=== PATIENT | female | born 1955 | race Caucasian/White ===

== ENCOUNTER 2017-11-13 17:07 | Outpatient (REF) | payer BC, SELFPAY ==
[2017-11-13 21:04] LABS: Creatine Kinase 104 U/L (26-192); TSH 2.48 uIU/mL (0.358-3.74)
== END 2017-11-13 17:27 ==
LOC: NCHCN 17:07
PROVIDERS: PCP Physician Assistant Medical; Visit Provider Physician Assistant Medical
DX: E03.9 Hypothyroidism, unspecified (principal); R73.9 Hyperglycemia, unspecified; M79.10 Myalgia, unspecified site
CPT/HCPCS: 82550; 84443

== ENCOUNTER 2017-12-26 15:19 | Outpatient (CLI) | payer BC, SELFPAY ==
--- NOTE | 2017-12-26 15:14 | DI.RAD_ITS ---
SYMPTOM/DIAGNOSIS: INJURY RIGHT FOOT: 12/26/17 Three views were obtained. There is fracture of the proximal phalanx of the 3rd toe in the distal midshaft with mild displacement. No additional fracture identified.
== END 2017-12-26 15:39 ==
PROVIDERS: PCP Physician Assistant Medical; Visit Provider Physician Assistant Surgical
DX: S99.921A Unspecified injury of right foot, initial encounter (principal); S92.511A Displaced fracture of proximal phalanx of right lesser toe(s), initial encounter for closed fracture
CPT/HCPCS: 73630

== ENCOUNTER 2018-03-13 05:15 | Outpatient (CLI) | payer BC, SELFPAY ==
--- NOTE | 2018-03-13 13:33 | DI.CTLCSR_ITS ---
SYMPTOMS/DIAGNOSIS: [facility], Z00.00, FORMER SMOKER, Z87.[address], LOW DOSE LUNG CANCER SCREENING PROTOCOL: CT examination of the chest was performed utilizing low dose lung cancer screening protocol. Images obtained through the upper abdomen show unremarkable appearance of visualized portions of liver, spleen, pancreas, adrenals and kidneys. Prior cholecystectomy noted. No mediastinal or hilar adenopathy seen. No aortic dilatation seen. No pleural effusion. No evidence of pneumothorax. Tracheobronchial tree appears intact. The lungs are predominantly clear. Predominantly linear peripheral and pleural- based radiodensities are noted in the lung apices and, to a lesser degree, the lung bases. No intrapulmonary focal nodule seen. No consolidation seen. CONCLUSION: Negative lung cancer screening low dose CT. Lung-RAD Category: 1- Negative Lung- RAD Management of Findings: Continue annual LDCT screening in 12 months
== END 2018-03-13 05:35 ==
PROVIDERS: PCP Nurse Practitioner Family; Visit Provider Nurse Practitioner Family
DX: Z12.2 Encounter for screening for malignant neoplasm of respiratory organs (principal); Z00.00 Encounter for general adult medical examination without abnormal findings; Z87.891 Personal history of nicotine dependence
CPT/HCPCS: G0297

== ENCOUNTER 2018-07-30 00:25 | Outpatient (CLI) | payer BC, SELFPAY ==
--- NOTE | 2018-07-30 10:42 | DI.MAMMO_ITS ---
SYMPTOMS/DIAGNOSIS: SCREENING, [facility], Z00.00 MAMMOGRAMS: Mammograms were interpreted according to the usual protocol including computer analysis with CAD system, tomosynthesis and C view imaging. The breast tissue is heterogeneously radiodense, which lowers the sensitivity of the study. There is no dominant mass. There are no suspicious calcifications and there has been no significant interval change when compared with prior images. SUMMARY: No evidence of malignancy, category 1. Yearly screening mammography is recommended. Breast density category C. SA ASSESSMENT OF FINDINGS: Negative. Category 1. Patient will receive a letter notifying them of these results. Bi-RADS category C. The breasts are heterogeneously dense, which may obscure small masses.
== END 2018-07-30 00:45 ==
PROVIDERS: PCP Nurse Practitioner Family; Visit Provider Nurse Practitioner Family
DX: Z00.00 Encounter for general adult medical examination without abnormal findings (principal); Z12.31 Encounter for screening mammogram for malignant neoplasm of breast
CPT/HCPCS: 77063; 77067

== ENCOUNTER 2018-09-22 04:03 | Outpatient (CLI) | payer BC, SELFPAY ==
[2018-09-22 10:03] LABS: ALT 25 U/L (12-78); AST 12 U/L (15-37); Anion Gap 7.1 mmol/L (3-11); BUN 17 mg/dL (7-18); CO2 28.9 mmol/L (21.0-32.0); Calcium 8.7 mg/dL (8.5-10.1); Chloride 107 mmol/L (98-107); Creatine Kinase 71 U/L (26-192); Estimated GFR 45.67 (mL/min/1.73m2); Glucose 108 mg/dL (70-100); Potassium 4.6 mmol/L (3.5-5.1); Sodium 143 mmol/L (136-145)
[2018-09-22 10:15] LABS: Calculated LDL 103 mg/dL; Cholesterol 173 mg/dL (50-200); HDL Cholesterol 62 mg/dL (40-60); Triglyceride 40 mg/dL (30-150)
== END 2018-09-22 04:23 ==
PROVIDERS: PCP Nurse Practitioner Family; Visit Provider Nurse Practitioner Family
DX: E78.00 Pure hypercholesterolemia, unspecified (principal); R73.9 Hyperglycemia, unspecified; N18.3 Chronic kidney disease, stage 3 (moderate)
CPT/HCPCS: 36415; 80048; 80061; 82550; 83721; 84450; 84460

== ENCOUNTER 2019-03-21 15:56 | Outpatient (CLI) | payer BC, SELFPAY ==
[2019-03-21 16:09] LABS: Bilirubin Negative (Negative); Blood Small (Negative); Clarity Cloudy (Clear); Glucose Negative (Negative); Ketones Negative (Negative); Leukocyte Esterase Large (Negative); Nitrite Positive (Negative); Urobilinogen 0.2 EU/dL (Up TO 0.2); pH 6.5 (5-8)
[2019-03-21 16:22] LABS: Bacteria Many HPF (Negative); C & S Indicated? Yes; Casts Negative LPF (Negative); Crystals Negative HPF (Negative); Epithelial Cells Negative HPF (Negative); Mucus Negative (Negative); RBC >50 HPF (0-2); WBC >50 HPF (0-5)
== END 2019-03-21 16:16 ==
PROVIDERS: PCP Nurse Practitioner Family; Visit Provider Physician Assistant Medical
DX: R35.0 Frequency of micturition (principal)
CPT/HCPCS: 87077; 81003; 81015; 87086; 87186

== ENCOUNTER 2019-03-24 18:28 | Outpatient (REF) | payer BC, SELFPAY ==
[2019-03-24 19:25] LABS: Anion Gap 7.6 mmol/L (3-11); BUN 12 mg/dL (7-18); CO2 29.4 mmol/L (21.0-32.0); CREATININE 1.15 mg/dL (0.55-1.02); Calcium 9.2 mg/dL (8.5-10.1); Chloride 105 mmol/L (98-107); Estimated GFR 47.81 (mL/min/1.73m2); Glucose 88 mg/dL (74-106); Potassium 4.1 mmol/L (3.5-5.1); Sodium 142 mmol/L (136-145); TSH (W/Ref FT4) 2.75 uIU/mL (0.36-3.74)
== END 2019-03-24 18:48 ==
LOC: NCHCN 18:28
PROVIDERS: PCP Nurse Practitioner Family; Visit Provider Nurse Practitioner Family
DX: E03.9 Hypothyroidism, unspecified (principal); E78.49 Other hyperlipidemia; F32.9 Major depressive disorder, single episode, unspecified; R73.9 Hyperglycemia, unspecified
CPT/HCPCS: 80048; 83036; 84443

== ENCOUNTER 2019-10-30 17:49 | Emergency (ER) | payer BC, SELFPAY ==
[2019-10-30 17:54] VITALS: BP 142/79; PULSE 76; RESP 20; TEMP 37; O2SAT 99
[2019-10-30 18:07] LABS: Bilirubin Negative (Negative); Blood Moderate (Negative); Clarity Sl Cloudy (Clear); Glucose Negative (Negative); Ketones Negative (Negative); Leukocyte Esterase Moderate (Negative); Nitrite Negative (Negative); Urobilinogen 0.2 EU/dL (Up TO 0.2); pH 5.5 (5-8)
[2019-10-30 18:15] LABS: Bacteria Moderate HPF (Negative); Casts Negative LPF (Negative); Crystals Negative HPF (Negative); Epithelial Cells Negative HPF (Negative); Mucus Negative (Negative); Other Cells Few Renal (Negative); WBC >50 HPF (0-5)
[2019-10-30 18:16] LABS: C & S Indicated? Yes
--- NOTE | 2019-10-30 18:34 | ED.GENADUL_ITS ---
Discharge Plan Disposition Patient Disposition: HOME Condition: Stable Discharge Details Clinical Impression: UTI (urinary tract infection) Primary Care Provider: Paola Yi ED Provider: Juan Dowd Home Meds and New Rx's Prescriptions: Continued multivitamin [Daily Multi-Vitamin] 1 EACH tablet 1 ea PO DAILY RF: 0 hydroxyzine HCl 50 MG tablet 50 mg PO HS RF: 0 bupropion HCl 100 MG tablet extended release 12 hr 100 mg PO BID RF: 0 levothyroxine [Levoxyl] 25 MCG tablet 25 mcg PO DAILY RF: 0 loratadine-pseudoephedrine [Loratadine-D] 1 EACH tablet extended release 24 hr 1 tab-cap PO DAILY RF: 0 zolpidem 10 MG tablet 5 mg PO HS RF: 0 advantage digestive 1 cap DAILY RF: 0 aspirin 81 MG tablet,delayed release (DR/EC) 81 mg PO DAILY Qty: 30 RF: 0 atorvastatin 40 mg tablet 40 mg PO DAILY Qty: 30 RF: 11 omeprazole 10 mg capsule,delayed release(DR/EC) 10 mg PO BID RF: 0 omega-3 fatty acids Capsule 1,250 mg PO DAILY RF: 0 Tumeric 1 PO DAILY RF: 0 Discharge Instructions Instructions: Urinary Tract Infection in Women (ED) Additional Instructions: Urine is consistent with urinary tract infection. Take the antibiotics that were prescribed to you by your primary care provider. Please watch for new or worsening symptoms and return to the ER for any concerns. Please follow the instructions given to you by your primary care provider earlier today. Discharge Data Discharge Date/Time-TO BE ENTERED AT DEPARTURE: 10/30/19 18:43 Medical Decision Making 64-year-old female who has had UTIs in the past presents reporting that she believes she has a UTI again. Symptoms began today. It appears as though there was some confusion and she actually only needed to drop off a urine sample at the lab and not be evaluated in the ER. She denies fever, back pain, vomiting, abdominal pain. She appears well, nontoxic. Urinalysis reveals moderate blood, moderate leuk esterase, 5-10 red cells, greater than 50 white cells. Patient already has a prescription for cephalexin. Patient will be discharged from the ER having had a urinalysis obtained she will follow the instructions given to her by her primary care provider earlier today. Medical Records Medical records reviewed: Yes I reviewed the patient's medical records. Lab Data Lab results reviewed: Yes I reviewed the patient's lab results. Labs: 10/30/19 18:00 Urine - Reflex from Ua Urine Culture - Pending Laboratory Tests Range/Units 10/30/19 18:00 Urine Color (Yellow) Yellow Urine Clarity (Clear) Sl cloudy Urine pH (5-8) 5.5 Ur Specific [place] (1.005-1.025) 1.020 Urine Protein (Negative) mg/dL Negative Urine Ketones (Negative) mg/dL Negative Urine Blood (Negative) Moderate H Urine Nitrite (Negative) Negative Urine Bilirubin (Negative) Negative Urine Urobilinogen (Up TO 0.2) EU/dL 0.2 Ur Leukocyte Esterase (Negative) Moderate H Urine RBC (0-2) HPF 5-10 H Urine WBC (0-5) HPF >50 H Ur Epithelial Cells (Negative) HPF Negative Urine Crystals (Negative) HPF Negative Urine Bacteria (Negative) HPF Moderate Urine Casts (Negative) LPF Negative Urine Mucus (Negative) Negative Urine Other (Negative) Few renal Ur Culture Indicated? Yes Urine Glucose (Negative) mg/dL Negative HPI General Mode of arrival: ambulatory . Date/Time Provider Initiated Documentation: 10/30/19 18:05 . Limitations to Documentation: no limitations . Information obtained by: patient . HPI Narrative: 64-year-old female with past medical history of GERD, thyroid disease, hyperlipidemia, presents to the ER for evaluation. Patient reports that she began having UTI-like symptoms this morning, frequency, dysuria. Denies fever, back pain, nausea, vomiting, hematuria. Patient already contacted her primary care provider, she has a prescription for antibiotics to fill, and was told to go to the lab to drop off a urine sample. It appears as though there was some confusion and the patient did not actually mean to or need to sign into the ER. Given her chief complaint, urinalysis has already been sent per protocol. Related Data Home Medications Medication Instructions Recorded Confirmed Ad[employer]age Dig[employer]ive 1 cap DAILY 09/01/14 10/30/19 bupropion HCl 100 mg PO BID tab-cap 09/01/14 10/30/19 hydroxyzine HCl 50 mg PO HS 09/01/14 10/30/19 levothyroxine [Levoxyl] 25 mcg PO DAILY tab-cap 09/01/14 10/30/19 loratadine-pseudoephedrine 1 tab-cap PO DAILY tab-cap 09/01/14 10/30/19 [Loratadine-D] multivitamin [Daily Multi-Vitamin] 1 ea PO DAILY 09/01/14 10/30/19 zolpidem 5 mg PO HS 09/01/14 10/30/19 aspirin 81 mg PO DAILY #30 tab-cap 03/09/17 10/30/19 atorvastatin 40 mg tablet 40 mg PO DAILY #30 tab-cap 02/26/18 10/30/19 Tumeric 1 PO DAILY 10/30/19 omega-3 fatty acids 1,250 mg PO DAILY 10/30/19 10/30/19 omeprazole 10 mg PO BID 10/30/19 10/30/19 Previous Rx's Medication Instructions Recorded aspirin 81 mg PO DAILY #30 tab-cap 03/09/17 atorvastatin 40 mg tablet 40 mg PO DAILY #30 tab-cap 02/26/18 Allergies Allergy/AdvReac Type Severity Reaction Status Date / Time latex Allergy rash Unverified 10/30/19 18:02 hydrocodone AdvReac N/V/Diarrhe Unverified 10/30/19 18:02 a oxycodone AdvReac N/V/diarrhe Unverified 10/30/19 18:02 a raw tomatoes Allergy hives Uncoded 10/30/19 18:02 General Stated Complaint: Urinary JACKELINE: 4 Review of Systems Constitutional Constitutional: Denies fever(s) Gastrointestinal Gastrointestinal: Denies abdominal pain, Denies nausea and Denies vomiting Genitourinary Genitourinary: Reports dysuria and Reports urinary hesitancy Musculoskeletal Musculoskeletal: Denies back pain [facility] Social History Smoking/Tobacco Use Status: Former Tobacco Use Alcohol Intake: never Drug use: Never Substance use type: does not use Do you feel safe in your relationship?: Yes Exam Const General: cooperative, healthy appearing, comfortable and no acute distress Orientation: alert and awake [facility] Head: normal to inspection, normocephalic and atraumatic Mouth: moist mucous membranes Eyes Conjunctivae: conjunctivae normal Sclera: sclerae normal Neck Neck: normal visual inspection, full ROM, trachea midline and supple Resp Effort & Inspection: normal respiratory effort and able to speak in complete sentences Cardio Rate: regular rate Rhythm: regular rhythm GI Palpation: soft and nontender Back/Spine/Pelvis Back: No back tenderness Skin General skin exam: no rashes or lesions noted Neuro General: patient alert, patient awake, moves all extremities and no focal motor deficits Sensory Exam: no sensory deficits noted Psych Appearance: grossly normal Mental Status: mental status grossly normal Course Vital Signs Vital signs: Vital Signs Temperature 37 C 10/30/19 17:54 Pulse 76 10/30/19 17:54 Respiratory Rate 20 10/30/19 17:54 Blood Pressure 142/79 H 10/30/19 17:54 Pulse Oximetry 99 10/30/19 17:54 Temperature 37 C 10/30/19 17:54 Temperature Source Skin 10/30/19 17:54 Pulse 76 10/30/19 17:54 Respiratory Rate 10/30/19 17:54 Respiratory Effort Non-Labored 10/30/19 18:07 Blood Pressure 142/79 H 10/30/19 17:54 Blood Pressure Position Sitting 10/30/19 17:54 Pulse Oximetry 99 10/30/19 17:54 Oxygen Delivery Method Room Air 10/30/19 17:54 Oxygen Flow Rate 0 10/30/19 17:54 Pain Level 5 10/30/19 17:54 Lab/Test Results Lab/Test Results: 10/30/19 18:00 Urine - Reflex from Ua Urine Culture - Pending Laboratory Tests Range/Units 10/30/19 18:00 Urine Color (Yellow) Yellow Urine Clarity (Clear) Sl cloudy Urine pH (5-8) 5.5 Ur Specific [place] (1.005-1.025) 1.020 Urine Protein (Negative) mg/dL Negative Urine Ketones (Negative) mg/dL Negative Urine Blood (Negative) Moderate H Urine Nitrite (Negative) Negative Urine Bilirubin (Negative) Negative Urine Urobilinogen (Up TO 0.2) EU/dL 0.2 Ur Leukocyte Esterase (Negative) Moderate H Urine RBC (0-2) HPF 5-10 H Urine WBC (0-5) HPF >50 H Ur Epithelial Cells (Negative) HPF Negative Urine Crystals (Negative) HPF Negative Urine Bacteria (Negative) HPF Moderate Urine Casts (Negative) LPF Negative Urine Mucus (Negative) Negative Urine Other (Negative) Few renal Ur Culture Indicated? Yes Urine Glucose (Negative) mg/dL Negative
== END 2019-10-30 18:43 | disposition home or self-care (01) ==
PROVIDERS: Emergency Provider Physician Assistant; PCP Nurse Practitioner Family
DX: N39.0 Urinary tract infection, site not specified (principal); Z87.440 Personal history of urinary (tract) infections
CPT/HCPCS: 99282; 81003; 81015; 87086

== ENCOUNTER 2019-11-04 18:53 | Outpatient (REF) | payer BC, SELFPAY ==
[2019-11-04 20:06] LABS: AST 14 U/L (15-37); HDL Cholesterol 67 mg/dL (40-60); LDL CHOLESTEROL 95 mg/dL (<100); TSH 2.73 uIU/mL (0.36-3.74)
[2019-11-04 20:21] LABS: ALT 25 U/L (14-59); Creatine Kinase 88 U/L (26-192)
== END 2019-11-04 19:13 ==
LOC: NCHCN 18:53
PROVIDERS: PCP Nurse Practitioner Family; Visit Provider Nurse Practitioner Family
DX: E78.49 Other hyperlipidemia (principal); E03.9 Hypothyroidism, unspecified
CPT/HCPCS: 82550; 83721; 83718; 84443; 84450; 84460

== ENCOUNTER 2020-03-22 16:57 | Outpatient (REF) | payer BC, SELFPAY ==
[2020-03-22 20:21] LABS: Anion Gap 9.8 mmol/L (3-11); BUN 17 mg/dL (7-18); CO2 28.2 mmol/L (21.0-32.0); Calcium 9.2 mg/dL (8.5-10.1); Chloride 104 mmol/L (98-107); Glucose 84 mg/dL (74-106); Potassium 4.3 mmol/L (3.5-5.1); Sodium 142 mmol/L (136-145)
[2020-03-22 20:43] LABS: Hemoglobin A1C 5.8 % (<5.7)
== END 2020-03-22 16:58 | disposition home or self-care (01) ==
LOC: NCHCN 16:57
PROVIDERS: PCP Nurse Practitioner Family; Visit Provider Nurse Practitioner Family
DX: N18.30 Chronic kidney disease, stage 3 unspecified (principal); R73.03 Prediabetes
CPT/HCPCS: 80048; 83036

== ENCOUNTER 2020-03-26 13:44 | Outpatient (REF) | payer BC, SELFPAY ==
[2020-03-26 13:48] LABS: C Diff PCR Negative (Negative)
[2020-03-27 12:30] LABS: Campylobacter PCR Negative (Negative); Salmonella PCR Negative (Negative); Shiga Toxin PCR Negative (Negative); Shigella/Enteroinvasive Ecoli Negative (Negative)
== END 2020-03-26 13:45 | disposition home or self-care (01) ==
LOC: NCHCN 13:44
PROVIDERS: PCP Nurse Practitioner Family; Visit Provider Nurse Practitioner Family
DX: R73.03 Prediabetes (principal); E78.49 Other hyperlipidemia; N18.30 Chronic kidney disease, stage 3 unspecified; R19.4 Change in bowel habit
CPT/HCPCS: 87329; 87493; 87505; 87177

== ENCOUNTER 2020-04-01 02:35 | Outpatient (CLI) | payer BC, SELFPAY ==
[2020-04-02 13:42] LABS: COVID-19 RT-PCR UVMMC Result Negative (Negative)
== END 2020-04-01 02:36 | disposition home or self-care (01) ==
LOC: LBO 02:36
PROVIDERS: PCP Nurse Practitioner Family; Visit Provider Surgery
DX: Z20.822 Contact with and (suspected) exposure to COVID-19 (principal); Z01.818 Encounter for other preprocedural examination
CPT/HCPCS: U0003

== ENCOUNTER 2020-04-05 10:09 | Day surgery (SDC) | payer BC, SELFPAY ==
--- NOTE | 2020-04-05 06:53 | W.COLOREPORT ---
Date of service: 04/05/20 Time of Service: 10:59 Colonoscopy Report Date of procedure: 04/05/20 Pre-op diagnosis general: Colon Cancer Screening, hx of polyps Post-op diagnosis procedure note: same Procedure: Colonoscopy Surgeon: Ban Patel Anesthesia proc note operative: other (General/ASA 2/Fede Carrasco, LARRY) Estimated blood loss (mL): 0 Pathology: none sent Complications: None Disposition: same day Indications: The patient is here for Colonoscopy pre-op. Her last screening was in 2014 and was remarkable for tubular adenomatous polyp. She has no family history of colon cancer. She has not had any bowel habit changes. -Discussed colonoscopy bowel prep as well as the procedure. Discussed possible complications of the procedure to include bleeding, pain, perforation, missed small lesion/polyp, sore throat, aspiration and adverse reaction to the medications. Questions were answered to patient?s satisfaction. No guarantees were implied or given. Prep: Miralax/Dulcolax Procedure Start Time: :59 Procedure End Time: 11:25 Findings: Sigmoid diverticulosis Procedure Description: After informed consent was obtained the patient was taken to the procedure room and placed in a left decubitous position. Monitors were applied and a time out was done. The patients name, date of , procedure, allergies to medications and metal in their body was reviewed. The patient was then sedated. Once sedated and comfortable a rectal exam was done. External exam was normal. Internal exam revealed a normal sphincter tone and no palpable masses. The scope was then introduced and retro-flexed. No internal hemorrhoids, polyps or masses were identified on retro-flexion. The scope was then advanced to the cecum with some difficulty. The ileocecal vlave and appendiceal orifice were identified. The prep was good. The scope was then slowly retracted back into the rectum. (Unfortunately the pictures I took were lost so I am unable to calculate exact retraction time but it was > 6 minutes). There were no polyps. There was mild diverticulosis of the descending and sigmoid colon noted. The scope was removed and the patient was woken up and taken back to Same day surgery in stable condition. The patient tolerated the procedure well and there were no immediate complications. Follow up: The patient should follow up in 5 years unless they develop changes in bowel habits or other new gastrointestinal complaints.
--- NOTE | 2020-04-05 06:53 | W.PM.DSUDISC ---
Discharge Plan Disposition Patient Disposition: HOME Condition: Good Discharge Details Reason For Visit: Colon cancer screening Attending Provider: Ban Patel Primary Care Provider: Paola iY Home Meds and New Rx's Prescriptions: Continued multivitamin [Daily Multi-Vitamin] 1 EACH tablet 1 ea PO DAILY RF: 0 hydroxyzine HCl 50 MG tablet 50 mg PO HS RF: 0 bupropion HCl 100 MG tablet extended release 12 hr 100 mg PO BID RF: 0 levothyroxine [Levoxyl] 25 MCG tablet 25 mcg PO DAILY RF: 0 loratadine-pseudoephedrine [Loratadine-D] 1 EACH tablet extended release 24 hr 1 tab-cap PO DAILY RF: 0 advantage digestive 1 cap PO DAILY RF: 0 aspirin 81 MG tablet,delayed release (DR/EC) 81 mg PO DAILY Qty: 30 RF: 0 atorvastatin 40 mg tablet 40 mg PO DAILY Qty: 30 RF: 11 cholecalciferol (vitamin D3) 50 mcg (2,000 unit) capsule 50 mcg PO DAILY RF: 0 azelastine 137 mcg (0.1 %) aerosol,spray 2 spray intranasal BID RF: 0 zolpidem [Ambien] 10 mg tablet 10 mg PO QHS PRNRF: 0 omeprazole 10 mg capsule,delayed release(DR/EC) 10 mg PO BID RF: 0 omega-3 fatty acids Capsule 1,250 mg PO DAILY RF: 0 Tumeric 2,000 mg PO DAILY RF: 0 Discontinued polyethylene glycol 3350 17 gram/dose powder 238 g PO ONCE Qty: 238 RF: 0 bisacodyl [Dulcolax (bisacodyl)] 5 mg tablet,delayed release (DR/EC) 5 mg PO ONCE Qty: 4 RF: 0 Discharge Instructions Instructions: Diverticulosis (DC) Additional Instructions: Findings: diverticulosis Follow up: 5 years because you had a pre-cancerous polyp before Please call if you develop: fevers >101.5 Nausea or Vomiting Abdominal pain that is not transient DAY SURGERY UNIT POST ENDOSCOPY INSTRUCTIONS 1. Because there will be medication in your system for the next 24 hours, you may feel a little sleepy. Your coordination will be affected. Therefore: a. Do not drive or operate dangerous equipment for 24 hours. b. Do not drink alcohol beverages for 24 hours (not even beer). c. Plan to go home and rest for the day. 2. Generally there are no restrictions on your activity after a day or so has gone by, but you may feel a bit fatigued for a few days. 3 After you arrive home you may have a light meal and return to a normal diet as you can tolerate it without feeling sick to your stomach. 4. After surgery, you may feel pain or discomfort. This should be only transient, but if it persists please contact your doctor. 5. If there are any questions regarding the findings of your procedure, please feel free to contact your doctor. 6. If you are unable to contact your doctor with a problem, contact the hospital at [phone]. 7. Continue all your regular medications unless directed otherwise. I understand the above instructions and have no questions. Signature of Patient or Responsible Adult Escort Date/Time Name of Responsible Adult Escort Signature of Nurse Date/Time Activity:: Activity as Tolerated Diet:: High Fiber Discharge Orders Discharge Orders: Discharge Order (Routine); Ordered 04/05/20 Ordered By: Ban Patel
[2020-04-05 10:27] VITALS: BP 126/69; PULSE 69; RESP 16; TEMP 36.5; O2SAT 98
[2020-04-05] MEDS: Lactated Ringers 1,000 ML 80 ML IV (10:50)
[2020-04-05 11:50] VITALS: BP 137/77; PULSE 69; RESP 16; TEMP 36.6; O2SAT 99
== END 2020-04-05 12:15 | disposition home or self-care (01) ==
LOC: SUR 10:10
PROVIDERS: PCP Nurse Practitioner Family; Visit Provider Surgery
PROC: 0DJD8ZZ Inspection of Lower Intestinal Tract, Via Natural or Artificial Opening Endoscopic (ICD-10-PCS; CPT 45378; principal; 2020-04-05 11:00)
DX: Z12.11 Encounter for screening for malignant neoplasm of colon (principal); Z86.010 Personal history of colon polyps; N18.30 Chronic kidney disease, stage 3 unspecified; E03.9 Hypothyroidism, unspecified; K57.30 Diverticulosis of large intestine without perforation or abscess without bleeding; K21.9 Gastro-esophageal reflux disease without esophagitis
CPT/HCPCS: 45378; J2001

== ENCOUNTER 2020-11-15 17:17 | Outpatient (REF) | payer BC, SELFPAY ==
[2020-11-15 20:30] LABS: Bacteria Rare HPF (Negative); C & S Indicated? C&S Done As Ordered; Casts Negative LPF (Negative); Crystals Negative HPF (Negative); Epithelial Cells Few HPF (Negative); Mucus Negative (Negative); RBC 0-2 HPF (0-2)
== END 2020-11-15 17:18 | disposition home or self-care (01) ==
LOC: NCHCN 17:17
PROVIDERS: PCP Nurse Practitioner Family; Visit Provider Nurse Practitioner Family
DX: E03.9 Hypothyroidism, unspecified (principal); Z00.00 Encounter for general adult medical examination without abnormal findings; R39.15 Urgency of urination
CPT/HCPCS: 81015; 84439; 84443; 87086

== ENCOUNTER 2020-11-19 15:09 | Emergency (ER) | payer BC, SELFPAY ==
--- NOTE | 2020-11-19 15:12 | ED.GENADUL_ITS ---
Discharge Plan Disposition Patient Disposition: HOME Condition: Stable Discharge Details Clinical Impression: Hand laceration Primary Care Provider: Paola Yi ED Provider: Bernarda Torres Home Meds and New Rx's Prescriptions: New cephalexin 500 mg capsule 500 mg PO TID 7 Days Qty: 21 RF: 0 Continued multivitamin [Daily Multi-Vitamin] 1 EACH tablet 1 ea PO DAILY RF: 0 hydroxyzine HCl 50 MG tablet 50 mg PO HS RF: 0 bupropion HCl 100 MG tablet extended release 12 hr 100 mg PO BID RF: 0 levothyroxine [Levoxyl] 25 MCG tablet 25 mcg PO DAILY RF: 0 loratadine-pseudoephedrine [Loratadine-D] 1 EACH tablet extended release 24 hr 1 tab-cap PO DAILY RF: 0 aspirin 81 MG tablet,delayed release (DR/EC) 81 mg PO DAILY Qty: 30 RF: 0 atorvastatin 40 mg tablet 40 mg PO DAILY Qty: 30 RF: 11 cholecalciferol (vitamin D3) 50 mcg (2,000 unit) capsule 50 mcg PO DAILY RF: 0 azelastine 137 mcg (0.1 %) aerosol,spray 2 spray intranasal BID RF: 0 zolpidem [Ambien] 10 mg tablet 10 mg PO QHS PRNRF: 0 omeprazole 10 mg capsule,delayed release(DR/EC) 10 mg PO BID RF: 0 omega-3 fatty acids Capsule 1,250 mg PO DAILY RF: 0 Tumeric 2,000 mg PO DAILY RF: 0 Discharge Instructions Instructions: Laceration (ED) Additional Instructions: Keep wound clean and dry. Cover wound with bandage if risk of contamination. Otherwise you can keep the wound open to air if resting at home to allow edges to dry and heal. A prescription for antibiotics was sent electronically to your pharmacy. If you develop any local redness, swelling or pain not relieved with topical antibiotics, start the oral antibiotics immediately. Return to the emergency department in 7 days for suture removal. Discharge Data Discharge Date/Time-TO BE ENTERED AT DEPARTURE: 11/19/20 16:41 Discharge Physician: Bernarda Torres Medical Decision Making 65-year-old female presents with left hand/wrist laceration sustained while cutting potatoes at home with a knife prior to arrival. 3 cm linear laceration located on palmar/volar surface of left proximal hand/wri st. Bleeding controlled. No foreign bodies or bony deformity noted. Neurovascularly intact. Tetanus up-to-date. 5 nylon 5-0 sutures placed. Antibiotic ointment and dressing placed. Patient was also given a wrist splint to wear at times of use of left hand and wrist. Prevent over flexion or extension. Advised to return to the ED in 7 days for suture removal. Instructed on importance of proper wound care. Prescription for antibiotics sent electronically to her pharmacy. Usual and customary return precautions given prior to discharge. Medical Records Medical records reviewed: Yes I reviewed the patient's medical records. HPI General Mode of arrival: ambulatory . Date/Time Provider Initiated Documentation: 11/19/20 15:11 . Limitations to Documentation: no limitations . Information obtained by: patient . HPI Narrative: Patient is a 65-year-old female who presents with a left hand/wrist laceration sustained while cutting potatoes at home with a knife. Patient states she is unsure of her tetanus status. She is right-handed. Related Data Home Medications Medication Instructions Recorded Confirmed bupropion HCl 100 mg PO BID tab-cap 09/01/14 11/19/20 hydroxyzine HCl 50 mg PO HS 09/01/14 11/19/20 levothyroxine [Levoxyl] 25 mcg PO DAILY tab-cap 09/01/14 11/19/20 loratadine-pseudoephedrine 1 tab-cap PO DAILY tab-cap 09/01/14 11/19/20 [Loratadine-D] multivitamin [Daily Multi-Vitamin] 1 ea PO DAILY 09/01/14 11/19/20 aspirin 81 mg PO DAILY #30 tab-cap 03/09/17 11/19/20 atorvastatin 40 mg tablet 40 mg PO DAILY #30 tab-cap 02/26/18 11/19/20 Tumeric 2,000 mg PO DAILY 10/30/19 11/19/20 omega-3 fatty acids 1,250 mg PO DAILY 10/30/19 11/19/20 omeprazole 10 mg PO BID 10/30/19 11/19/20 azelastine 137 mcg (0.1 %) nasal 2 spray INTRANASAL BID 01/28/20 11/19/20 spray aerosol cholecalciferol (vitamin D3) 50 50 mcg PO DAILY 01/28/20 11/19/20 mcg (2,000 unit) capsule zolpidem 10 mg tablet 10 mg PO QHS PRN 01/28/20 11/19/20 cephalexin 500 mg PO TID 7 Days #21 cap 11/19/20 Previous Rx's Medication Instructions Recorded aspirin 81 mg PO DAILY #30 tab-cap 03/09/17 atorvastatin 40 mg tablet 40 mg PO DAILY #30 tab-cap 02/26/18 cephalexin 500 mg PO TID 7 Days #21 cap 11/19/20 Allergies Allergy/AdvReac Type Severity Reaction Status Date / Time latex Allergy rash Unverified 11/19/20 15:14 hydrocodone AdvReac N/V/Diarrhe Unverified 11/19/20 15:14 a oxycodone AdvReac N/V/diarrhe Unverified 11/19/20 15:14 a raw tomatoes Allergy hives Uncoded 11/19/20 15:14 General JACKELINE: 4 Review of Systems All systems reviewed & are unremarkable except as noted in HPI and below Constitutional Constitutional: Reports as per HPI, Denies chills and Denies fever(s) Eyes Eyes: Denies blurry vision ENT Ears, Nose, Mouth, and Throat: Denies dizziness, Denies sore throat and Denies throat swelling Cardiovascular Cardiovascular: Denies chest pain and Denies dyspnea Respiratory Respiratory: Denies cough and Denies dyspnea Gastrointestinal Gastrointestinal: Denies abdominal pain, Denies diarrhea and Denies vomiting Genitourinary Genitourinary: Denies hematuria and Denies dysuria Musculoskeletal Musculoskeletal: Denies back pain and Denies numbness Integumentary/Breasts Skin/Breast: Denies lesions and Denies rash Neurologic Neurologic: Denies dizziness, Denies localized weakness and Denies numbness Allergic/Immunologic Allergic/Immunologic: Denies throat swelling [facility] Medical History (Updated 11/19/20 @ 16:23 by Bernarda Torres DO) Basal cell carcinoma Depression Diverticulosis GERD (gastroesophageal reflux disease) Hyperlipidemia Hypothyroidism Insomnia Stage III chronic kidney disease Surgical History (Updated 04/07/20 @ 14:29 by Crystal Wilson) History of colonoscopy (~2014) History of colonoscopy (~03/2020) History of hysterectomy Social History Smoking/Tobacco Use Status: Former Tobacco Use Quit Date: 02/12/17 Smoking risk assessment performed?: Yes Alcohol Intake: current Alcohol Intake frequency: holidays/special occasions only Drug use: Never Substance use type: does not use Do you feel safe at home: Yes Do you feel safe in your relationship?: Yes Exam Const General: cooperative, healthy appearing and no acute distress HENMT Head: normal to inspection Mouth: oral mucosae normal Eyes General: appearance normal, both eyes and all related structures Neck Neck: normal visual inspection Resp Effort & Inspection: normal respiratory effort and able to speak in complete sentences Cardio Rate: regular rate Skin General skin exam: no rashes or lesions noted Neuro General: patient alert, patient awake and patient oriented x3 Motor: muscle tone normal throughout Extrem General: full ROM Hand/finger images: 1. 3 cm linear laceration located on palmar/volar surface of right proximal hand and wrist. Bleeding controlled. No foreign bodies noted. Other: Motor/sensory grossly intact to left hand and wrist. Psych Appearance: grossly normal Affect: normal affect Procedures Laceration Laceration 1: Site: hand Side (If applicable): left Size (cm): 3 Description: linear Depth: simple, single layer Local Anesthetic: Lidocaine 1% and with Epi Amount of anesthesia used (mL): 8 Pre-repair: wound explored, irrigated extensively and deep structures intact Skin layer closed with: nylon Size (cm): 5-0 Number of sutures: 5 Technique: simple, interrupted
[2020-11-19 15:13] VITALS: BP 138/68; PULSE 73; RESP 18; TEMP 36.2; O2SAT 98
--- NOTE | 2020-11-19 16:40 | NUR.NOTE ---
bacitracin, telfa, conform wrap to wrist.Nursing Note:
== END 2020-11-19 16:41 | disposition home or self-care (01) ==
PROVIDERS: Emergency Provider Physician Assistant; PCP Nurse Practitioner Family
DX: S61.412A Laceration without foreign body of left hand, initial encounter (principal); W26.0XXA Contact with knife, initial encounter
CPT/HCPCS: 12002; 29125

== ENCOUNTER 2020-12-28 08:31 | Outpatient (CLI) | payer BC, SELFPAY ==
--- NOTE | 2020-12-28 | DI.MAMMO_ITS ---
Exam(s) MAMMO SCREENING EXAM: MAMMO SCREENING CLINICAL HISTORY: SCREENING, [facility],Z00.00 TECHNIQUE: Mammograms were interpreted according to the usual protocol including computer analysis w [employer] CAD system, tomosynthesis and C-view imaging. COMPARISON: FINDINGS: The breasts are heterogeneously dense. No dominant mass or clumped microcalcification is identified in either breast. Examination is compared with previous examinations including July 2018 and there i s a question of a new focal area of nodularity projected centrally in the left breast on MLO view onl y. This is not well visualized. Additional mammographic views are requested to evaluate this findin g to include an MLO spot compression view of the left breast. No other significant change from prior studies. IMPRESSION: Additional mammographic views of the left breast requested as described above. Breast ultrasound may be indicated as well depending on the results of the additional mammographic views. BI-RADS Category 0 - Assessment Incomplete: Need additional imaging evaluation Breast Density - Category C - Heterogeneously dense
== END 2020-12-28 08:51 ==
PROVIDERS: PCP Nurse Practitioner Family; Visit Provider Nurse Practitioner Family
DX: Z00.00 Encounter for general adult medical examination without abnormal findings (principal); Z12.31 Encounter for screening mammogram for malignant neoplasm of breast; R92.8 Other abnormal and inconclusive findings on diagnostic imaging of breast
CPT/HCPCS: 77063; 77067

== ENCOUNTER 2021-01-11 00:55 | Outpatient (CLI) | payer BC, SELFPAY ==
--- NOTE | 2021-01-11 | DI.US_ITS ---
Exam(s) MG MAMMO SCREEN CALL BACK UNI US BREAST LT LIMITED EXAM: MG MAMMO SCREEN CALL BACK UNI and U/S breast LT limited CLINICAL HISTORY: F/U MAMMO,? NEW AREA OF NODULARITY LT BREAST. TECHNIQUE: Craniocaudal and mediolateral oblique Full Field Digital Mammography views of the left br east with Computer Aided Diagnosis followed by Tomosynthesis and left breast ultrasound. COMPARISON: Priors available for comparison. FINDINGS: Mammography/Tomosynthesis: Masses/Architectural Distortion: None seen. The area of concern is no longer visualized on the additi onal views of the left breast. Microcalcifictions: No suspicious pleomorphic-type are seen. Skin Thickening/Nipple Retraction: None. Left breast US: The upper inner and upper outer quadrants of the left breast were evaluated sonograph ically. Echotexture: Normal appearance of the glandular tissue. Shadowing: No suspicious foci. Cyst: There is a 0.5 x 0.3 x 0.5 cm cyst at the 12 o'clock position of the left breast 2 cm from the nipple. Solid lesions: None seen. Ductal dilation: None. IMPRESSION: 1. No evidence of malignancy is noted. 2. Unless there is more urgent need, follow-up screening mammography is recommended, as per [place] [employer] guidelines. 3. The findings were discussed with the patient on the date of the examination. BI-RADS Category 2 - Benign Findings Breast Density - Category C - Heterogeneously dense Breast density Category C or D implies that the patient has dense breast tissue. Dense breast tissue can make it harder to find cancer on a mammogram. Dense breast tissue is also associated with an incr eased risk of breast cancer. This information about the result of the mammogram report was provided to the patient to raise their awareness. Use this report when you speak with the patient about their risks for breast cancer, which includes their family history. At that time, you may recommend additional screening tests (Ultrasoun d or MRI) as these tests may add significant information. A negative radiographic report should not delay biopsy if a dominant or clinically suspicious mass is present. Up to ten percent of cancers are not identified on mammography. A negative report may reinforce clinical impression. Adenosis and dense breasts may obscure an underlying neoplasm. False positive reports average 6 to 10%. Patient will receive a letter notifying them of these results.
== END 2021-01-11 01:15 ==
PROVIDERS: PCP Nurse Practitioner Family; Visit Provider Nurse Practitioner Family
DX: R92.8 Other abnormal and inconclusive findings on diagnostic imaging of breast (principal); N60.02 Solitary cyst of left breast
CPT/HCPCS: 76642; 77063; 77067

== ENCOUNTER 2021-03-14 01:53 | Outpatient (CLI) | payer BC, SELFPAY ==
[2021-03-14 18:46] LABS: ALT 31 U/L (14-59); AST 23 U/L (15-37); Calculated LDL 103 mg/dL (<100); Cholesterol 190 mg/dL (<200); HDL Cholesterol 77 mg/dL (40-60); TSH 1.46 uIU/mL (0.36-3.74); Triglyceride 50 mg/dL (<150)
[2021-03-14 19:12] LABS: Creatine Kinase 109 U/L (26-192); FREE T4 1.06 ng/dL (0.76-1.46)
== END 2021-03-14 01:54 | disposition home or self-care (01) ==
LOC: LBO 01:53
PROVIDERS: PCP Nurse Practitioner Family; Visit Provider Nurse Practitioner Family
DX: E78.49 Other hyperlipidemia (principal); E03.9 Hypothyroidism, unspecified
CPT/HCPCS: 36415; 80061; 82550; 84439; 84443; 84450; 84460

== ENCOUNTER 2021-03-23 16:28 | Outpatient (REF) | payer BC, SELFPAY ==
[2021-03-23 20:13] LABS: ALT 32 U/L (14-59); AST 20 U/L (15-37); Albumin 3.9 g/dL (3.4-5.0); Alkaline Phosphatase 79 U/L (46-116); BUN 18 mg/dL (7-18); Bilirubin, Total 0.3 mg/dL (0.2-1.0); Calcium 8.8 mg/dL (8.5-10.1); Chloride 105 mmol/L (98-107); Estimated GFR 55.82 (mL/min/1.73m2); Glucose 101 mg/dL (74-106); Sodium 140 mmol/L (136-145)
== END 2021-03-23 16:29 | disposition home or self-care (01) ==
LOC: NCHCN 16:28
PROVIDERS: PCP Nurse Practitioner Family; Visit Provider Nurse Practitioner Family
DX: R10.11 Right upper quadrant pain (principal)
CPT/HCPCS: 80053

== ENCOUNTER 2021-03-28 15:08 | Outpatient (REF) | payer BC, SELFPAY ==
[2021-03-28 19:54] LABS: Abs Immature Grans 0.01 10^3/uL (0.0-0.06); Absolute Basophil Count 0.04 10^3/uL (0.0-0.2); Absolute Eosinophil Count 0.12 10^3/uL (0.0-0.7); Absolute Lymphocyte Count 2.26 10^3/uL (1.2-3.4); Absolute Neutrophil Count 2.49 10^3/uL (1.2-6.7); Basophils % 0.7; Eosinophils % 2.2; HCT 38.1 % (36.0-46.0); HGB 12.2 g/dL (11.2-15.7); Immature Grans % 0.2; Lymphocytes % 41.7; MCV 90.7 fL (80-95); MPV 10.6 fL (8.0-11.0); Monocytes % 9.2; Nucleated RBC 0 %; Platelet Count 276 10^3/uL (130-400); RDW 13.4 % (11.7-14.6); RDW-SD 44.5 fL; WBC 5.42 10^3/uL (4.4-10.8)
[2021-03-28 20:04] LABS: Amylase 86 U/L (25-115); Lipase 161 U/L (73-393)
== END 2021-03-28 15:09 | disposition home or self-care (01) ==
LOC: NCHCN 15:08
PROVIDERS: PCP Nurse Practitioner Family; Visit Provider Nurse Practitioner Family
DX: R10.11 Right upper quadrant pain (principal); R06.09 Other forms of dyspnea
CPT/HCPCS: 83690; 82150; 85025

== ENCOUNTER 2021-03-29 19:48 | Outpatient (CLI) | payer BC, SELFPAY ==
--- NOTE | 2021-03-29 | DI.CT_ITS ---
Exam(s) CT ABDOMEN W EXAM: CT ABDOMEN W CLINICAL HISTORY: RUQ ABD PAIN, R10.11 TECHNIQUE: Contrast infused CT scan of the abdomen was performed. The pelvis was not scanned. Contrast = 100 cc Omnipaque-350 COMPARISON: None. There are no prior abdominal imaging studies in our PACS. FINDINGS: Visualized lung bases exhibit mild benign-appearing increased markings in the inferior lingular segme nt of the left lung and posterior basal segment of the right lower lobe. There are no pleural effusi ons. There is no ascites in the upper abdomen. Liver size is normal. There are no discrete focal hepatic lesions nor dilatation of intrahepatic yahaira ts. The gallbladder is surgically absent. There is no abnormal collection or mass in the gallbladder bed . The CBD is not dilated. Pancreas appears unremarkable. No evidence of pancreatic mass, parenchymal calcifications, nor dilat ation of the pancreatic duct. Spleen size is normal. There are no splenic lesions. The splenic and portal veins are patent. Supe rior mesenteric vein is patent. Adrenal glands appear unremarkable. No masses. Kidneys appear unremarkable. No cysts nor solid lesions. No renal calculi nor hydronephrosis. No p erinephric fluid. Abdominal aorta is not enlarged. There is no atzaghesrhmvskh-vypg-qqpwwo adenopathy. Anterior abdominal wall exhibits no evidence of anterior abdominal hernia above the umbilicus level. Visualized small bowel loops exhibit normal diameters. No evidence of small-bowel obstruction. Area of the appendix is not included in the field of view of this study but the partially included termin al ileum appears unremarkable. IMPRESSION: 1. The gallbladder surgically absent. The biliary tree is not dilated. No abnormal collection in th e gallbladder fossa. 2. No significant focal hepatic lesions. 3. No other focal findings in the upper abdomen. The pelvis was not scanned.
[2021-03-29] MEDS: Breeza Beverage 473 ML BTL 946 ML PO (11:08)
[2021-03-29] MEDS: Omnipaque 350 MG/ML 50 ML BTL 25 ML IJ (11:09)
[2021-03-29] MEDS: Omnipaque 350 MG/ML 100 ML BTL IJ (11:41)
== END 2021-03-29 20:08 ==
LOC: DI 19:50
PROVIDERS: PCP Nurse Practitioner Family; Visit Provider Nurse Practitioner Family
DX: R10.11 Right upper quadrant pain (principal); Z90.49 Acquired absence of other specified parts of digestive tract
CPT/HCPCS: 74160; J3490; Q9967

== ENCOUNTER 2021-04-12 15:21 | Outpatient (RCR) | payer BC, SELFPAY ==
--- NOTE | 2021-04-12 15:15 | HOLTER_ITS ---
APPROVED REPORT Conclusion This was a 48-hour Holter monitor ordered for palpitations Predominant rhythm was sinus. Average heart rate was 74. Minimum was 59, maximum 108 There were no ventricular dysrhythmias There were rare atrial premature beats. There was one 4 beat atrial run There was no atrial fibrillation, no high-grade AV block, no pauses greater than 3 seconds There were no apparent patient symptoms
== END 2021-05-12 23:59 | disposition home or self-care (01) ==
LOC: RT 15:21
PROVIDERS: PCP Nurse Practitioner Family; Visit Provider Nurse Practitioner Family
DX: R00.2 Palpitations (principal); I49.1 Atrial premature depolarization
CPT/HCPCS: 93225; 93226

== ENCOUNTER 2021-04-18 02:54 | Outpatient (CLI) | payer BC, SELFPAY ==
--- NOTE | 2021-04-18 15:00 | ETT_ITS ---
APPROVED REPORT Exam: Exercise Treadmill Patient Location: Out-Patient Room/Bed: Stress Nurse: Susie Juarez RN Ordering Provider:ARDEN SIMMONS, Contact Number: [phone] BMI: 26.78 Baseline Rhythm: Sinus Rhythm Indications: EXERTIONAL SOB Medical History Medical History: HLD, Hypothyroidism, GERD Cardiac Medications: Atorvastatin, Aspirin Allergies: Hydrocodone, Oxycodone Cardiac Risk Factors: FHX of CAD, Hyperlipidemia, Smoking (former) Previous Cardiac Procedures: None Pretest Chest Pain Characteristics: Dyspnea Exercise History: Sedentary Physical Disabilities: None Lung Sounds: Clear to auscultation Heart Sounds: Regular Stress Test Details Test: Exercise stress testing was performed using a Richy protocol. Rest Stress HR Resting HR Supine: 66 bpm Max Heart Rate (APMHR): 156 bpm Resting HR Standin bpm Target HR (85% APMHR): 132 bpm Max HR Achieved: 136 bpm % of APMHR: 87 Recovery HR: 78 bpm HR response to stress: Normal HR response to stress BP Resting BP Supine: 130/72 mmHg Resting BP Standin/72 mmHg Max BP: 182/74 mmHg Recovery BP: 120/64 mmHg BP response to stress: Normal blood pressure response to stress. ECG Resting ECG: Sinus Rhythm Ectopy: None Stress ECG: Sinus Tachycardia ST Change: No significant ST segment changes noted Arrhythmia: None Recovery ECG: Sinus Rhythm Recovery ST Change: No significant ST segment changes noted Recovery Arrhythmia: None Clinical Reason for Termination: Dizziness Stress Symptoms: Dyspnea, Dizziness Exercise duration: 6 min44 sec Highest Stage Reached: Stage 3: 3.4 mph at 14% grade. Exercise capacity: 8.19 METs Clark Treadmill Score: 8 Rate Pressure Product: [id number] Stress ECG Conclusion 1. The patient exercised for 6 minutes and 40 seconds (8 METS). Exercise was stopped due to dyspnea and dizziness. 2. Heart rate and blood pressure augmented appropriately. 3. There were no ECG changes suggestive of ischemia. 4. Consider imaging stress test if clinical suspicion remains high. Clark Treadmill Score is 8 which is Low risk. Stress Test Summary STAGE Time (mins) Speed (mph) Grade (%) HR BP SYMPTOMS METS Supine 66 130/72 Standing 75 128/72 1 3 1.7 10 107 134/76 4.6 2 6 2.5 12 126 162/80 moderate SOB. SpO2 98% 7 1 min recovery 115 182/74 3 min recovery 85 142/70 SOB resolved 6 min recovery 78 120/64
== END 2021-04-18 03:14 ==
LOC: DI 02:54
PROVIDERS: PCP Nurse Practitioner Family; Visit Provider Nurse Practitioner Family
DX: R06.02 Shortness of breath (principal)
CPT/HCPCS: 93017

== ENCOUNTER 2021-06-17 16:53 | Outpatient (REF) | payer BC, SELFPAY ==
--- NOTE | 2021-06-17 15:10 | SKI_PTH ---
PATIENT: Felicitas Cameron LOC: [facility] U#:[id number] AGE/SX: 66/F ROOM: RE06/17/[address]: MOR Denny : 1955 BED: DIS: 06/17/2021 SPEC #: [id number] RECD: 06/20/21 12:38 STATUS: ANTON REQ #: [id number] AMANDA: 06/17/21 15:[address]: Sam Dickerson DEPT: Surgical Specimen RECD BY: Beatriz Lee ENTERED: 06/20/21 12:38 SP TYPE: SKI OTHR DR: Paola Yi Tissues: 1 - SKIN BIOPSY(SHAVE/PUNCH) Procedures: SKIN LEVEL 4 Comments: [id number]
== END 2021-06-17 16:54 | disposition home or self-care (01) ==
LOC: LBN 16:53
PROVIDERS: PCP Nurse Practitioner Family; Visit Provider Physician Assistant
DX: L82.1 Other seborrheic keratosis (principal)
CPT/HCPCS: 88305

== ENCOUNTER → 2022-01-13 00:21 | Outpatient (CLI) | payer OTHER, SELFPAY ==
--- NOTE | 2022-01-13 15:58 | DI.MAMMO_ITS ---
Exam(s) MAMMO SCREENING EXAM: MAMMO SCREENING CLINICAL HISTORY: SCREENING FOR BREAST CANCER Z12.31 TECHNIQUE: Mammograms were interpreted according to the usual protocol including computer analysis w [employer] CAD system, tomosynthesis and C-view imaging. COMPARISON: 2012 through 2020 FINDINGS: The breasts are composed of heterogeneously dense fibroglandular densities, Breast Density category C . No suspicious masses or suspicious microcalcifications are seen. No skin thickening or abnormal axillary lymph nodes are seen. There has been no significant change from prior exams. IMPRESSION: BI-RADS Category 1, Negative mammogram. Yearly screening mammography is recommended. Breast Density Category C, heterogeneously Dense. The mammogram demonstrates the patient's breast tissue is dense. Dense breast tissue is very common a nd is not abnormal but dense breast tissue can make it harder to find cancer on a mammogram. Also, de nse breast tissue may increase breast cancer risk. This information about the result of the mammogram report was provided to the patient to raise their awareness. Use this report when you speak with the patient about their risks for breast cancer, which includes their family history. At that time, you may recommend additional screening tests (Ultrasound or MRI) as they might be useful based on their r isk. A negative radiographic report should not delay biopsy if a dominant or clinically suspicious mass is present. Up to ten percent of cancers are not identified on mammography. A negative report may reinforce clinical impression. Adenosis and dense breasts may obscure an underlying neoplasm. False positive reports average 6 to 10%.
== END ==
PROVIDERS: PCP Nurse Practitioner Family; Visit Provider Nurse Practitioner Family
DX: Z12.31 Encounter for screening mammogram for malignant neoplasm of breast (principal); R92.8 Other abnormal and inconclusive findings on diagnostic imaging of breast
CPT/HCPCS: 77063; 77067

== ENCOUNTER 2022-03-13 16:28 | Outpatient (REF) | payer OTHER, SELFPAY ==
[2022-03-13 20:08] LABS: ALT 24 U/L (14-59); AST 25 U/L (15-37); Anion Gap 6.2 mmol/L (3-11); BUN 16 mg/dL (7-18); CO2 30.8 mmol/L (21.0-32.0); CREATININE 1.1 mg/dL (0.55-1.02); Calcium 9.4 mg/dL (8.5-10.1); Chloride 104 mmol/L (98-107); Estimated GFR 55.76 (mL/min/1.73m2); Glucose 94 mg/dL (74-106); HDL Cholesterol 83 mg/dL (40-60); LDL CHOLESTEROL 103 mg/dL (<100); Potassium 4.3 mmol/L (3.5-5.1); Sodium 141 mmol/L (136-145); TSH 1.94 uIU/mL (0.36-3.74)
[2022-03-13 20:28] LABS: Hemoglobin A1C 5.8 % (<5.7)
[2022-03-13 20:29] LABS: Creatine Kinase 161 U/L (26-192)
== END 2022-03-13 16:29 | disposition home or self-care (01) ==
LOC: NCHCN 16:28
PROVIDERS: PCP Nurse Practitioner Family; Visit Provider Nurse Practitioner Family
DX: R73.03 Prediabetes (principal); G47.00 Insomnia, unspecified; J44.9 Chronic obstructive pulmonary disease, unspecified; E78.5 Hyperlipidemia, unspecified; E03.9 Hypothyroidism, unspecified
CPT/HCPCS: 80048; 82550; 83721; 83036; 83718; 84439; 84443; 84450; 84460

== ENCOUNTER → 2023-06-13 09:06 | Outpatient (BNVA) | payer MEDICARE, SELFPAY | PROVIDERS: PCP Nurse Practitioner Family; Referring Provider Nurse Practitioner Family; Visit Provider Physician Assistant Surgical | DX: J44.9 Chronic obstructive pulmonary disease, unspecified (principal); R06.02 Shortness of breath; Z87.891 Personal history of nicotine dependence; Z23 Encounter for immunization | CPT/HCPCS: 99214; G0009 ==

== ENCOUNTER 2023-07-06 18:05 | Outpatient (REF) | payer MEDICARE, SELFPAY ==
[2023-07-06 18:54] LABS: Hemoglobin A1C 6.1 % (<5.7)
[2023-07-06 19:03] LABS: ALT 23 U/L (14-59); AST 19 U/L (15-37); Albumin 3.9 g/dL (3.4-5.0); Alkaline Phosphatase 93 U/L (46-116); Anion Gap 7.7 mmol/L (3-11); BUN 22 mg/dL (7-18); Bilirubin, Total 0.4 mg/dL (0.2-1.0); CO2 29.3 mmol/L (21.0-32.0); CREATININE 1.2 mg/dL (0.55-1.02); Calcium 8.8 mg/dL (8.5-10.1); Calculated LDL 101 mg/dL (<100); Chloride 106 mmol/L (98-107); Cholesterol 188 mg/dL (<200); Estimated GFR 49.92 (mL/min/1.73m2); Glucose 96 mg/dL (74-106); HDL Cholesterol 73 mg/dL (40-60); Potassium 4.5 mmol/L (3.5-5.1); Sodium 143 mmol/L (136-145); TSH (W/Ref FT4) 2.07 uIU/mL (0.36-3.74); Total Protein 7.2 g/dL (6.4-8.2); Triglyceride 71 mg/dL (<150)
== END 2023-07-06 18:06 | disposition home or self-care (01) ==
LOC: NCHCN 18:05
PROVIDERS: PCP Nurse Practitioner Family; Visit Provider Physician Assistant Medical
DX: E03.9 Hypothyroidism, unspecified (principal); E78.5 Hyperlipidemia, unspecified; R73.03 Prediabetes
CPT/HCPCS: 80053; 80061; 83036; 84443

== ENCOUNTER → 2023-08-02 00:17 | Outpatient (CLI) | payer MEDICARE, SELFPAY ==
--- NOTE | 2023-08-02 | DI.RAD_ITS ---
Exam(s) XR SHOULDER LT COMPLETE 2+V EXAM: XR SHOULDER LT COMPLETE 2+V CLINICAL HISTORY: M25.512 Pain in left shoulder. TECHNIQUE: 2D digital imaging was performed of the left shoulder. Four images were obtained. AP, G rashey and Y views were obtained. COMPARISON: No exams were available for comparison FINDINGS: BONES: No acute fracture is present. No bony destructive lesion is seen. JOINTS: No dislocation present. The glenohumeral and acromioclavicular joints are unremarkable. Ther e is spurring at the lateral aspect of the acromion. SOFT TISSUE: Normal. IMPRESSION: No acute fracture or dislocation. DATA REPOSITORY: RADIATION DOSE DELIVERED:
--- NOTE | 2023-08-02 | DI.DEXA_ITS ---
Exam(s) XR DEXA BONE DENSITY W/WO SAMMY EXAM: XR DEXA BONE DENSITY W/WO SAMMY CLINICAL HISTORY: Z78.0 Asymptomatic menopausal state TECHNIQUE: COMPARISON: DX DEXA BONE DENSITY WITH SAMMY from 02/01/2009 FINDINGS: Lateral Spine Image: Unremarkable. No compression deformities identified. Left hip: Total T-Score: -1.0. This compares to -0.2 on the prior examination. Total Z-Score: 0.3 T- and Z-scores: This is within normal limits. There is no evidence of osteoporosis. Lumbar Spine: Total T-Score: 0.2. This compares to -0.1 on the prior examination. Total Z-Score: 2.0 T- and Z-scores: Within normal limits. IMPRESSION: No evidence of osteoporosis.
--- NOTE | 2023-08-02 11:20 | DI.CTLCSR_ITS ---
Exam(s) CT CHEST LUNG CANCER SCREEN EXAM: CT CHEST LUNG CANCER SCREEN CLINICAL HISTORY: Z87.891 Personal HX of nicotine dependence TECHNIQUE: Imaging Protocol: Axial computed tomography images with coronal and sagittal reformatted images were created and reviewed COMPARISON: CT CT CHEST LUNG CANCER SCREEN from 07/20/2022 FINDINGS: Tracheobronchial tree: Patent where visualized. Pulmonary parenchyma: No consolidation or dominant measurable mass. There is mild biapical scarring. This is stable. Lung Nodules: None. Mediastinum and Betsey: No dominant adenopathy or fluid collection. The esophagus is unremarkable.There is a small hiatal hernia. Thyroid gland: Unremarkable. Lymph nodes: Unremarkable. Pleura: No effusion or pneumothorax. Heart: The heart is not dilated. No coronary artery calcifications are seen. No pericardial effusion . Aorta: Thoracic aorta non-dilated.Atherosclerotic calcification is present. Upper abdomen: Status post cholecystectomy. Soft Tissues: Unremarkable. Bones: Within normal limits. IMPRESSION: No pulmonary nodules. Lung RADS Cat 1 - Negative: No nodules and definitely benign nodules Lung-RADS 1.0 CATEGORIES: Category 0 - Prior chest CT exam(s) being located for comparison. Category 1 - Annual screening in 12 months. No nodules or definitely benign nodules. Category 2 - Annual screening in 12 months. Benign appearance. Nodules with low likelihood of becomin g active cancer. Category 3 - 6-month follow-up. Probably benign. Short-term follow-up suggested. Nodules with low lik elihood of becoming active cancer. Category 4A - 3-month follow-up and CT/PET if >8 mm in size. Suspicious finding. Findings which requi re additional testing. Category 4B - Findings which require additional testing and tissue sampling. Suspicious finding. Category 4X - Category 3 or 4 nodules with additional features or imaging findings that increases the suspicion of malignancy. Modifier S- Potentially clinically significant finding. (Non lung cancer) RADIATION DOSE DELIVERED: 74.47mGy.cm Total DLP 74.47mGy.cmTotal DLP DATA REPOSITORY: All CT scans at this facility are submitted to the National Radiology Data Registry (NRDR) Dose Index Registry (DIR) with the [employer] (ACR). RADIATION OPTIMIZATION: All CT scans at this facility use at least one of these dose optimization te chniques: automated exposure control; mA and/or kV adjustment per patient size (includes targeted exa ms where dose is matched to clinical indication); or iterative reconstruction.
--- NOTE | 2023-08-02 12:25 | DI.MAMMO_ITS ---
Exam(s) MAMMO SCREENING EXAM: MAMMO SCREENING CLINICAL HISTORY: Z12.31 Screening mammogram TECHNIQUE: Bilateral full field digital CC and MLO mammographic images were obtained with 3D tomosyn thesis and utilizing computer aided detection (CAD). COMPARISON: Available for comparison. FINDINGS: Masses/Architectural Distortion: None seen. Microcalcifications: No suspicious pleomorphic-type are seen. Skin Thickening/Nipple Retraction: None. IMPRESSION: 1. No significant interval change with no specific features of malignancy noted. 2. Unless there is more urgent need, screening mammography is recommended, as per [place] guidelines. BI-RADS Category 1 - Negative Breast Density - Category C - Heterogeneously dense Breast density category C or D implies that the patient has dense breast tissue. Dense breast tissue is very common and is not abnormal but dense breast tissue can make it harder to find cancer on a ma mmogram. Also, dense breast tissue may increase their breast cancer risk. This information about the result of the mammogram report was provided to the patient to raise their awareness. Use this report when you speak with the patient about their risks for breast cancer, which includes their family hist ory. At that time, you may recommend for more screening tests (Ultrasound or MRI) as they might be us eful based on their risk. A negative radiographic report should not delay biopsy if a dominant or clinically suspicious mass is present. Up to ten percent of cancers are not identified on mammography. A negative report may reinforce clinical impression. Adenosis and dense breasts may obscure an underlying neoplasm. False positive reports average 6 to 10%. Patient will receive a letter notifying them of these results.
== END ==
PROVIDERS: PCP Nurse Practitioner Family; Visit Provider Physician Assistant Medical
DX: Z78.0 Asymptomatic menopausal state (principal); Z87.891 Personal history of nicotine dependence; Z12.2 Encounter for screening for malignant neoplasm of respiratory organs; Z12.31 Encounter for screening mammogram for malignant neoplasm of breast
CPT/HCPCS: 71271; 77063; 77067; 77080; 73030

== ENCOUNTER → 2023-09-26 13:43 | Outpatient (BNVA) | payer MEDICARE, SELFPAY | PROVIDERS: PCP Physician Assistant Medical; Referring Provider Physician Assistant Medical; Visit Provider Student in an Organized Health Care Education/Training Program | DX: M75.02 Adhesive capsulitis of left shoulder (principal); J43.9 Emphysema, unspecified; J45.909 Unspecified asthma, uncomplicated | CPT/HCPCS: 99214 ==

== ENCOUNTER 2023-10-16 02:20 | Outpatient (CLI) | payer MEDICARE, SELFPAY ==
--- NOTE | 2023-10-16 09:10 | DI.MRI_ITS ---
Exam(s) MR UPPER JOINT LT WO EXAM: MR UPPER JOINT LT WO CLINICAL HISTORY: adhesive capsulitis,lt shoulder, m75.02,pre aaron. TECHNIQUE: Multiplanar multisequence MRI was performed. COMPARISON: CR XR SHOULDER LT COMPLETE 2+V from 08/02/2023 FINDINGS: BONES: There is no fracture or contusion pattern. JOINTS: There are mild degenerative changes seen at the acromioclavicular joint. There is a downward sloping of the lateral acromion with some impingement upon the rotator cuff tendons. There is also h yperintense signal seen in the acromion at the deltoid attachment site. There is thinning of the claudette cular cartilage at the glenohumeral joint. TENDONS: Supraspinatus: There is tendinosis of the supraspinatus tendon. Infraspinatus: There is mild thickening and intermediate signal seen in the infraspinatus tendon cons istent with tendinosis. No evidence of a tear. Subscapularis: Unremarkable. Teres Minor: Unremarkable. Biceps and [place]: Unremarkable. MUSCLES: Unremarkable. GLENOID LABRUM: Unremarkable on this noncontrast examination. SOFT TISSUES: Unremarkable. LIGAMENTS: Unremarkable. OTHER: There is a small amount of fluid seen in the subacromial subdeltoid bursa IMPRESSION: 1. Mild hyperintense marrow signal on the lateral acromion. There is downward sloping of the lateral acromion. It does appear to impinge upon the rotator cuff muscles. 2. Small amount of fluid in the subacromial subdeltoid bursa. 3. Tendinosis of the supraspinatus and infraspinatus muscles. 4. Mild degenerative changes seen at the acromioclavicular joint and the glenohumeral joint. DATA REPOSITORY:
== END 2023-10-16 02:40 ==
PROVIDERS: PCP Physician Assistant Medical; Visit Provider Student in an Organized Health Care Education/Training Program
DX: M75.02 Adhesive capsulitis of left shoulder (principal)
CPT/HCPCS: 73221

== ENCOUNTER 2023-10-18 06:18 | Day surgery (SDC) | payer MEDICARE, SELFPAY ==
--- NOTE | 2023-10-18 06:34 | W.ANESPRE ---
General Info Date of Service Date Performed: 10/18/23 Height: 5 ft 6.14 in Weight: 72.575 kg Body Mass Index (BMI): 25.7 Surgical Procedure: Operation Date: 10/18/23 07:40 Proposed Procedure Side Surgeon p Shoulder Manipulation Under Anesthesia Left Franco Thakkar MD Meds Allergies and Home Medications Allergies Allergy/AdvReac Type Severity Reaction Status Date / Time latex Allergy rash Verified 10/18/23 06:30 hydrocodone AdvReac N/V/Diarrhe Verified 10/18/23 06:30 a oxycodone AdvReac N/V/diarrhe Verified 10/18/23 06:30 a raw tomatoes Allergy hives Uncoded 10/18/23 06:30 Home Medication ?Medication ?Instructions ?Recorded bupropion HCl 100 mg tablet,12 hr 100 mg PO BID 09/01/14 sustained-release hydroxyzine HCl 50 mg tablet 50 mg PO HS 09/01/14 multivitamin (Daily Multi-Vitamin 1 ea PO DAILY 09/01/14 tablet) aspirin 81 mg tablet,delayed 81 mg PO DAILY #30 tab-caps 03/09/17 release atorvastatin 40 mg tablet 40 mg PO DAILY #30 tab-caps 02/26/18 omega-3 fatty acids 1,250 mg PO DAILY 10/30/19 cholecalciferol (vitamin D3) 50 50 mcg PO DAILY 01/28/20 mcg (2,000 unit) capsule zolpidem 10 mg tablet (Ambien) 10 mg PO QHS PRN 01/28/20 tiotropium 2.5 mcg-olodaterol 2.5 2 puff inhalation DAILY 09/15/21 mcg/actuation mist for inhalation (Stiolto Respimat) fluticasone propionate 110 1 puff inhalation BID #12 grams 01/09/22 mcg/actuation HFA aerosol inhaler (Flovent HFA) calcium carb-vit D3-minerals 600 1 tab PO BID 04/10/22 mg calcium-400 unit tablet guaifenesin 1,200 mg tablet, 1,200 mg PO BID #60 tabs 04/10/22 extended release 12 hr (Mucinex) albuterol sulfate 90 mcg/actuation 2 puff inhalation Q6H PRN 10/17/22 aerosol inhaler (ProAir HFA) shortness of breath or wheezing #8.5 grams levothyroxine 50 mcg capsule 50 mcg PO DAILY 08/14/23 magnesium chloride 64 mg 64 mg PO DAILY 08/14/23 (magnesium chloride) tablet omeprazole 20 mg capsule,delayed 20 mg PO BID 08/14/23 release polyethylene glycol 3350 17 17 g PO DAILY PRN 09/26/23 gram/dose oral powder (Miralax) Current Visit Medications: Current Medications Generic Name Dose Route Start Last Admin Trade Name Freq PRN Reason Stop Dose Admin Ringer's Solution 1,000 mls @ 30 mls/hr 10/18/23 06:00 IV 11/16/23 23:59 INFUSION JOSHUA IV Miscellaneous Supplies 1 each 10/18/23 06:00 Iv Access IV 11/16/23 23:59 DIRECTED JOSHUA Sodium Chloride 0 ml 10/18/23 06:00 Normal Saline Flush 10 Ml Syr IV 11/16/23 23:59 PRN PRN Sodium Chloride 0 ml 10/18/23 06:00 Normal Saline 10 Ml Vial IJ 11/16/23 23:59 DIRECTED PRN Sterile Water 0 ml 10/18/23 06:00 Water,Injection,Sterile 10 Ml Vial IJ 11/16/23 23:59 DIRECTED PRN PFSH Active Problems Active Problems: Problem Status Onset Code Adhesive capsulitis of left shoulder Acute M75.02 Asthma-COPD overlap syndrome Acute J44.9 History of nicotine dependence Acute Z87.891 Myalgia Acute M79.10 Vaginal dryness Acute N89.8 Hot flashes Acute R23.2 Allergic rhinitis Acute J30.9 Diarrhea Acute R19.7 Urinary urgency Acute R39.15 Snoring Acute R06.83 Breast cyst Acute N60.09 Exertional shortness of breath Acute R06.02 Palpitations Acute R00.2 Fungal infection of toenail Acute B35.1 Nevus Acute D22.9 Constipation Acute K59.00 Hand laceration Acute S61.419A Closed fracture of proximal phalanx of toe of right foot Acute S92.911A Mallet deformity of left middle finger Acute 05/24/16 M20.012 Medical History Medical History (Updated 09/26/23 @ 14:40 by MOR Kapadia) Diverticulosis Basal cell carcinoma Insomnia GERD (gastroesophageal reflux disease) Stage III chronic kidney disease Hyperlipidemia Depression Hypothyroidism Surgical History Surgical History (Updated 04/07/20 @ 14:29 by Crystal Wilson) History of colonoscopy (~03/2020) History of hysterectomy History of colonoscopy (~2014) Tobacco Smoking/Tobacco Use Status: Former Tobacco Use Alcohol Alcohol Intake: current Alcohol intake frequency: 0-2 drinks per day Alcohol type: wine Substance Use Substance use: Never Substance use type: does not use Vital Signs and Lab Results Vital Signs Most Recent Vital Signs in EMR: Temp Pulse Resp BP Pulse Ox 36.5 C 73 16 174/79 H 97 10/18/23 06:35 10/18/23 06:35 10/18/23 06:35 10/18/23 06:35 10/18/23 06:35 Lab Results Blood Type / Crossmatch: No Data to Display Complete Blood Count: No Data to Display Complete Metabolic Panel: No Data to Display Liver Function Panel: No Data to Display Coagulation Panel: No Data to Display Cardiac Panel: No Data to Display Arterial Blood Gas: No Data to Display Venous Blood Gas: No Data to Display Pancreas Panel: No Data to Display Thyroid Panel: No Data to Display Infectious Disease: No Data to Display Blood Cultures: No Data to Display Toxicology Panel: No Data to Display Imaging and Studies Imaging and Studies Study information below may be from another EMR and interpreted by another provider. Please see original notes in EMR for more complete details. Stress Test Summary: 05/03: 8 METS, no ECG changes suggestive of ischemia. Anesthesia Assessment and Plan Anesthesia History Personal History: No History of Anesthesia Complications Family History: No Family History of Anesthesia Complications Exercise Tolerance Exercise Tolerance: Metabolic Equivalents>4 Cardiac & Pulmonary Exam Cardiac Exam: Normal S1/S2 Heart Sounds Pulmonary Exam: Clear Bilateral Breath Sounds Implantable Cardiac Device Does patient have a Pacemaker or an ICD?: No Airway Exam Known Difficult Airway: No Mallampati Class: 3 Mouth Opening: Normal (> 3cm) Thyromental Distance: Less than 3 cm Neck Range of Motion: Limited ROM Neck Circumference: Normal Teeth Condition: Removable Dentures/Plates Upper, Removable Dentures/Plates Lower and Edentulous ASA Classification ASA Score: ASA 2 Emergency Case?: No NPO Status NPO Status: NPO Clears >2 hours, Solids >8 hours Anesthesia Plan Resuscitation Status: Full Code Anesthesia Technique: General Anesthesia Airway Planned: Natural Airway Pain Management: Surgeon and patient request nerve block Monitors Used: Standard Monitors Preoperative Comments:: 68 yo female for shoulder manipulation. Sig PMHx: asthma/copd (albuterol, flovent stiolto. breathing feels good today, rare rescue inhaler use), GERD (omeprazole. well controlled. HOB flat for sleep), CKDIII, hypothyroid (levothyroxine. stable), depression (bupropion). former smoker, occ EtOh. Stress test: 8 METS, no ischemia. Holter: sinus. no afib/vent dysr. PFTs: FEV1 65%, FVC 76%, DLCO 75%. Previous Anes: - colo, prop, natural airway, no issues
[2023-10-18 06:35] VITALS: BP 174/79; PULSE 73; RESP 16; TEMP 36.5; O2SAT 97
[2023-10-18] MEDS: Lactated Ringers 1,000 ML 30 ML IV (06:40)
[2023-10-18 06:44] VITALS: BMI 25.7
[2023-10-18 07:06] VITALS: BP 176/64; PULSE 72; RESP 18; TEMP 36.6; O2SAT 96
[2023-10-18 07:12] VITALS: BP 132/90; PULSE 70; RESP 15; O2SAT 96
--- NOTE | 2023-10-18 07:20 | ROE_ITS ---
Date of service: 10/18/23 Time of Service: 07:30 Operative Note Operative Note DATE OF PROCEDURE: 10/18/23 PRE-OP DIAGNOSIS: Left shoulder stiffness PROCEDURE: Left shoulder manipulation under anesthesia, CPT #06409 SURGEON: Franco Thakkar ANESTHESIA TYPE: General LMA/ETT and Primary Nerve Block Refer to Anesthesia Record ESTIMATED BLOOD LOSS: 0 COMPLICATIONS: None Patient was transported to: same day Patient's condition: stable Indications: Please see complete medical record for details. Findings: Excellent release of adhesions, no instability Procedure Description: In the operating room, general anesthesia was induced. The patient was positioned supine on the stretcher. Preoperative antibiotics were omitted. The correct patient, procedure, and side of the procedure were all verified prior to beginning. The Left shoulder was examined with range of motion about 90 degrees forward e levation and 25 degrees external rotation. Internal rotation at about 90 degrees 45 degrees, abduction about 90 degrees. These endpoints had somewhat firm but open?end feel. A short lever arm and gradual to steady gentle pressure was used to perform the manipulation starting with forward elevation, which did most of the releasing gradually gently and steadily and then more easily alternating between external rotation at the side, forward elevation, and abduction with internal and external rotation to confirm complete zoroastrianism of range of motion and releases. Deliberately gradually and carefully excellent releases were felt in forward elevation and much lesser extent in external rotation. Minimal release needed in abduction and internal rotation. Range of motion was then tested and full. All endpoints were gently exaggerated. The shoulder joint remained stable. While the patient remained under anesthesia, all directions were stretched and repeated numerous times. The patient awoke from anesthesia without complication and was transferred to the recovery room in a stable condition.
--- NOTE | 2023-10-18 07:20 | W.PM.DSUDISC ---
Date of service: 10/18/23 Time of Service: 08:00 Discharge Plan Disposition Patient Disposition: Home Condition: Stable Discharge Details Attending Provider: Franco Thakkar Primary Care Provider: Margi Gil Home Meds and New Rx's Prescriptions: New naproxen 250 mg tablet 250 - 500 mg PO BID PRN (Reason: moderate pain and swelling) Qty: 20 0RF Rx Instructions: take with a meal Continued fluticasone propionate [Flovent HFA] 110 mcg/actuation HFA aerosol inhaler 1 puff inhalation BID Qty: 12 12RF polyethylene glycol 3350 [Miralax] 17 gram/dose powder 17 g PO DAILY PRN calcium carbonate-vit D3-min 600 mg calcium- 400 unit tablet 1 tab PO BID guaifenesin [Mucinex] 1,200 mg tablet extended release 12hr 1,200 mg PO BID Qty: 60 3RF albuterol sulfate [ProAir HFA] 90 mcg/actuation HFA aerosol inhaler 2 puff inhalation Q6H PRN (Reason: shortness of breath or wheezing) Qty: 8.5 12RF multivitamin [Daily Multi-Vitamin] 1 EACH tablet 1 ea PO DAILY hydroxyzine HCl 50 MG tablet 50 mg PO HS bupropion HCl 100 MG tablet extended release 12 hr 100 mg PO BID aspirin 81 MG tablet,delayed release (DR/EC) 81 mg PO DAILY Qty: 30 0RF atorvastatin 40 mg tablet 40 mg PO DAILY Qty: 30 11RF cholecalciferol (vitamin D3) 50 mcg (2,000 unit) capsule 50 mcg PO DAILY zolpidem [Ambien] 10 mg tablet 10 mg PO QHS PRN Stiolto Respimat 2.5-2.5 mcg/actuation mist 2 puff inhalation DAILY levothyroxine 50 mcg capsule 50 mcg PO DAILY magnesium chloride 64 mg magnesium tablet 64 mg PO DAILY omeprazole 20 mg capsule,delayed release(DR/EC) 20 mg PO BID omega-3 fatty acids Capsule 1,250 mg PO DAILY Discharge Instructions Additional Instructions: Surgery: Left shoulder manipulation under anesthesia Activity: Encourage increasing range of motion. Perform daily stretching exercises. Resume physical therapy tomorrow. Prescriptions: Naproxen 250 mg take 1-2 every 12 hours with a meal as needed for moderate pain You may use [id number] Tylenol (acetaminophen) as needed for mild pain. These pain medications may be taken together or separately as needed. Dressings: None Follow-up: 10-[address] Thakkar You may take off the leg compression stockings this evening at home. You may also leave them on a few days longer if you have a history of leg swelling or edema. Let us know right away if you develop any redness, drainage, fevers, chest pain, or trouble breathing. Do not drink alcohol or drive for at least 24 hours after anesthesia. Please call the office during business hours with any questions or concerns. Discharge Orders Discharge Orders: Discharge Order (Routine); Ordered 10/18/23 Ordered By: Sowmya Hoover DS: Diagnosis Discharge Diagnosis (1) Adhesive capsulitis of left shoulder: Status: Acute
[2023-10-18 07:42] VITALS: BP 137/65; PULSE 71; RESP 16; TEMP 36.2; O2SAT 97
--- NOTE | 2023-10-18 07:54 | W.ANESPOSTOP ---
Postoperative Evaluation Date, Time and Location Date Performed: 10/18/23 Time Performed: 07:55 Patient Location: Day Surgery Unit Vital Signs Most Recent Imported Vital Signs: Most Recent Vital Signs Temp Pulse Resp BP Pulse Ox 36.2 C L 71 16 137/65 97 10/18/23 07:42 10/18/23 07:42 10/18/23 07:42 10/18/23 07:42 10/18/23 07:42 Pain Score Most Recent Pain Score: Most Recent Pain Score Pain Level 0 10/18/23 07:42 Assessment Mental Status: Arousable with meaningful communication Airway and Respiratory Function: Patent airway with normal (patient baseline) respiratory exam Cardiovascular Function: Hemodynamically Stable Hydration Status: Adequately Hydrated Nausea & Vomiting: No Nausea or Vomiting Pain: Pain is tolerable per patient Peripheral Nerve Block: Regional nerve block not resolved at time of post operative discharge
[2023-10-18 08:17] VITALS: BP 148/71; PULSE 72; RESP 16; TEMP 36.5; O2SAT 96
[2023-10-18] MEDS: Naproxen 250 MG TAB PO (08:20)
--- NOTE | 2023-10-18 10:33 | W.ANESNERVE ---
Nerve Block Single Injection Procedure Date and Time Date Performed: 10/18/23 Procedure Start: 07:13 Location Where Procedure Performed Procedure Location: Day Surgery Unit Reason Performed: Postoperative Analgesia Requesting Provider: Franco Thakkar Timeout Performed Timeout Performed: Yes Monitoring Used ECG, Blood Pressure, SpO2 and See EMR for corresponding vital signs Sterility Sterility: Hand Hygiene, Surgical Cap, Surgical Mask, Sterile Gloves and Chlorhexidine Sedation Given During Procedure Sedation Given (Indicate Dose Given): Versed IV Dose:: 2mg Patient Mental Status Patient Mental Status: Sedate with meaningful communication Nerve Block 1st Nerve Block: Laterality: Left Block Type: Interscalene Ultrasound Image Saved?: Yes Needle / Catheter Used: 80mm SonoPlex II Local Anesthetic Bolus (Indicate Dose Given): Lidocaine used for local infiltration of skin, Injected in 3-5ml increments after negative blood aspiration, Bupivacaine 0.5% Dose:: 10mL and Exparel Dose:: 10mL Additives (Indicate Dose Given): None Ultrasound: Sterile probe cover and gel used Nerve Stimulator: Supplement to Ultrasound use and No twitch or parasthesia noted < 0.5 mA Paresthesia: None Procedure Tolerated: No Complications Procedure Outcome: Successful Performed By: Vanesa Santos
== END 2023-10-18 08:48 | disposition home or self-care (01) ==
PROVIDERS: PCP Physician Assistant Medical; Visit Provider Student in an Organized Health Care Education/Training Program
PROC: (CPT 23700; principal; 2023-10-18 07:30)
DX: M75.02 Adhesive capsulitis of left shoulder (principal)
CPT/HCPCS: 23700; 76942; C9290; J0665; J2250; J2405; J2704

== ENCOUNTER → 2023-10-30 09:23 | Outpatient (BNVA) | payer MEDICARE, SELFPAY | PROVIDERS: PCP Physician Assistant Medical; Referring Provider Physician Assistant Medical; Visit Provider Student in an Organized Health Care Education/Training Program | DX: Z47.89 Encounter for other orthopedic aftercare (principal); M25.512 Pain in left shoulder ==

== ENCOUNTER → 2023-12-25 14:09 | Outpatient (BNVA) | payer MEDICARE, SELFPAY | PROVIDERS: PCP Physician Assistant Medical; Referring Provider Nurse Practitioner Family; Visit Provider Physician Assistant Surgical | DX: J44.9 Chronic obstructive pulmonary disease, unspecified (principal); Z87.891 Personal history of nicotine dependence; R06.02 Shortness of breath | CPT/HCPCS: 99214 ==

== ENCOUNTER 2024-01-15 17:07 | Outpatient (REF) | payer MEDICARE, SELFPAY ==
[2024-01-15 20:09] LABS: Anion Gap 6.9 mmol/L (3-11); BUN 14 mg/dL (7-18); CO2 30.1 mmol/L (21.0-32.0); CREATININE 1.2 mg/dL (0.55-1.02); Calcium 9.1 mg/dL (8.5-10.1); Chloride 107 mmol/L (98-107); Estimated GFR 49.92 (mL/min/1.73m2); Glucose 83 mg/dL (74-106); Potassium 4.2 mmol/L (3.5-5.1); Sodium 144 mmol/L (136-145)
[2024-01-15 20:15] LABS: Hemoglobin A1C 6.1 % (<5.7)
[2024-01-15 20:18] LABS: COMMENT (LAB VIEW ONLY) 22.99 mg/dL; Microalb ug/mg Crea 18.3 ug/mg Cr
== END 2024-01-15 17:08 | disposition home or self-care (01) ==
LOC: NCHCN 17:07
PROVIDERS: PCP Physician Assistant Medical; Visit Provider Physician Assistant Medical
DX: R73.03 Prediabetes (principal)
CPT/HCPCS: 80048; 82043; 82570; 83036

== ENCOUNTER 2024-06-19 00:41 | Outpatient (CLI) | payer MEDICARE, SELFPAY ==
--- NOTE | 2024-06-19 09:00 | DI.RAD_ITS ---
Exam(s) XR HAND LT COMPLETE EXAM: XR HAND LT COMPLETE CLINICAL HISTORY: L HAND PAIN, M79.642. TECHNIQUE: 2D digital imaging was performed. COMPARISON: No exams were available for comparison FINDINGS: 3 views No evidence of acute fracture nor dislocation. There is a calcific density off the dorsal aspect of the DIP joint of the 2nd-index finger which is related to degenerative change. This does not represe nt a fracture fragment. No other soft tissue calcifications evident. No osseous lesions nor erosion s. No radiopaque foreign bodies. IMPRESSION: No fractures evident. DATA REPOSITORY: RADIATION DOSE DELIVERED:
== END 2024-06-19 01:01 ==
LOC: DI 00:41
PROVIDERS: PCP Physician Assistant Medical; Visit Provider Physician Assistant Medical
DX: M79.642 Pain in left hand (principal)
CPT/HCPCS: 73130

== ENCOUNTER 2024-07-08 14:03 | Outpatient (REF) | payer MEDICARE, SELFPAY ==
[2024-07-08 16:13] LABS: Absolute Basophil Count 0.04 10^3/uL (0.0-0.2); Absolute Eosinophil Count 0.13 10^3/uL (0.0-0.7); Absolute Lymphocyte Count 1.85 10^3/uL (1.2-3.4); Absolute Monocyte Count 0.37 10^3/uL (0.1-0.8); Absolute Neutrophil Count 3.15 10^3/uL (1.2-6.7); Basophils % 0.7 %; Eosinophils % 2.3 %; HCT 39.2 % (36.0-46.0); HGB 12.8 g/dL (11.2-15.7); Lymphocytes % 33.4 %; MCH 29.9 pg (27.0-33.0); MCHC 32.7 % (32.0-36.0); MCV 92 fL (80-95); MPV 10.8 fL (8.0-11.0); Monocytes % 6.7 %; Neutrophils % 56.9 %; Platelet Count 309 10^3/uL (130-400); RBC 4.28 10^6/uL (3.93-5.22); RDW 13.3 % (11.7-14.6); RDW-SD 44.6 fL; WBC 5.54 10^3/uL (4.4-10.8)
[2024-07-08 16:36] LABS: ALT 26 U/L (14-59); AST 20 U/L (15-37); Albumin 3.9 g/dL (3.4-5.0); Alkaline Phosphatase 97 U/L (46-116); Anion Gap 5.9 mmol/L (3-11); BUN 15 mg/dL (7-18); Bilirubin, Total 0.4 mg/dL (0.2-1.0); CO2 30.1 mmol/L (21.0-32.0); Calculated LDL 98 mg/dL (<100); Chloride 106 mmol/L (98-107); Cholesterol 188 mg/dL (<200); Estimated GFR 61.75 (mL/min/1.73m2); Glucose 108 mg/dL (74-106); HDL Cholesterol 78 mg/dL (>or=50); Potassium 4.1 mmol/L (3.5-5.1); Sodium 142 mmol/L (136-145); TSH 0.91 uIU/mL (0.36-3.74); Triglyceride 63 mg/dL (<150)
[2024-07-08 17:31] LABS: Hemoglobin A1C 5.8 % (<5.7)
== END 2024-07-08 14:04 | disposition home or self-care (01) ==
LOC: NCHCN 14:03
PROVIDERS: PCP Physician Assistant Medical; Visit Provider Physician Assistant Medical
DX: E03.9 Hypothyroidism, unspecified (principal); R73.03 Prediabetes; E78.5 Hyperlipidemia, unspecified; R23.9 Unspecified skin changes
CPT/HCPCS: 80053; 80061; 83036; 84443; 85025

== ENCOUNTER 2024-08-06 00:18 | Outpatient (CLI) | payer MEDICARE, SELFPAY ==
--- NOTE | 2024-08-06 | DI.CTLCSR_ITS ---
Exam(s) CT CHEST LUNG CANCER SCREEN EXAM: CT CHEST LUNG CANCER SCREEN CLINICAL HISTORY: FORMER SMOKER, Z87.891, PERSONAL H/O NICOTINE DEPENDENCE, SCREENING TECHNIQUE: Imaging Protocol: Axial computed tomography images with coronal and sagittal reformatted images were created and reviewed. Low dose screening protocol. COMPARISON: CT CT CHEST LUNG CANCER SCREEN from 08/02/2023 FINDINGS: Tracheobronchial tree: No bronchiectasis or mucus plugging. Mediastinum and Betsey: No dominant adenopathy or fluid collection. Small hiatal hernia. Pulmonary parenchyma: Mild emphysematous changes. Mild biapical scarring. No consolidation or dominant measurable mass. No visible emphysematous changes. No significant interstitial changes. Lung Nodules: None. Pleura: No effusion. No pneumothorax. Heart: The heart is not dilated. No coronary artery calcifications are seen. No pericardial effusion. Aorta: Thoracic aorta non-dilated. Upper abdomen: Unremarkable. Cholecystectomy. Bones: Unremarkable for age. Soft Tissues: Unremarkable. IMPRESSION: No suspicious pulmonary nodules. Lung RADS Cat 1 - Negative: No nodules and definitely benign nodules Lung-RADS 1.0 CATEGORIES: Category 0 - Prior chest CT exam(s) being located for comparison. Category 1 - Annual screening in 12 months. No nodules or definitely benign nodules. Category 2 - Annual screening in 12 months. Benign appearance. Nodules with low likelihood of becoming active cancer. Category 3 - 6-month follow-up. Probably benign. Short-term follow-up suggested. Nodules with low likelihood of becoming active cancer. Category 4A - 3-month follow-up and CT/PET if >8 mm in size. Suspicious finding. Findings which require additional testing. Category 4B - Findings which require additional testing and tissue sampling. Category 4X - Category 3 or 4 nodules with additional features or imaging findings that increases the suspicion of malignancy. Modifier S- Potentially clinically significant findings (non lung cancer) RADIATION DOSE DELIVERED: !Error Total DLP DATA REPOSITORY: All CT scans at this facility are submitted to the National Radiology Data Registry (NRDR) Dose Index Registry (DIR) with the [employer] (A[employer]). RADIATION OPTIMIZATION: All CT scans at this facility use at least one of these dose optimization techniques: automated exposure control; mA and/or kV adjustment per patient size (includes targeted exams where dose is matched to clinical indication); or iterative reconstruction.
== END 2024-08-06 00:38 ==
LOC: DI 00:18
PROVIDERS: PCP Physician Assistant Medical; Visit Provider Physician Assistant Medical
DX: Z12.2 Encounter for screening for malignant neoplasm of respiratory organs (principal); Z87.891 Personal history of nicotine dependence
CPT/HCPCS: 71271

== ENCOUNTER → 2024-08-14 12:28 | Outpatient (BNVA) | payer MEDICARE, SELFPAY | PROVIDERS: PCP Physician Assistant Medical; Referring Provider Physician Assistant Medical; Visit Provider Physician Assistant Surgical | DX: J44.9 Chronic obstructive pulmonary disease, unspecified (principal); R06.02 Shortness of breath; Z87.891 Personal history of nicotine dependence | CPT/HCPCS: 99214 ==

== ENCOUNTER → 2025-02-10 14:03 | Outpatient (BNVA) | payer MEDICARE, SELFPAY | PROVIDERS: PCP Physician Assistant Medical; Referring Provider Physician Assistant Medical; Visit Provider Physician Assistant Surgical | DX: J44.9 Chronic obstructive pulmonary disease, unspecified (principal); R06.02 Shortness of breath; Z87.891 Personal history of nicotine dependence | CPT/HCPCS: 99214 ==